=== PATIENT | female | born 1960 | race Caucasian/White ===

== ENCOUNTER → 2023-03-31 09:45 | Outpatient (REF) | payer BC, SELFPAY | LOC: RAD 09:45 | PROVIDERS: ATTENDING PHYSICIAN Family Medicine | DX: Z78.0 Asymptomatic menopausal state (principal); Z85.42 Personal history of malignant neoplasm of other parts of uterus | CPT/HCPCS: 77080 ==

== ENCOUNTER 2023-08-22 11:23 | Emergency (ER) | payer BC, SELFPAY ==
[2023-08-22 11:23] VITALS: BMI 32.9
[2023-08-22 11:25] VITALS: BP 202/126
[2023-08-22 11:51] LABS: % Basophils 0.2 % (0-2); % Eosinophils 2.4 % (0-6); % Immature Granulocytes 0.2 % (0-0.5); % Lymphocytes 31.1 % (20.5-51.1); % Monocytes 7.5 % (1.7-9.3); % Neutrophils 58.6 % (42.2-75.2); Absolute Eosinophils 0.2 10^3/uL (0-0.7); Absolute Lymphocytes 2.7 10^3/uL (1.2-3.4); Absolute Monocytes 0.7 10^3/uL (0.1-0.6); Absolute Neutrophils 5.1 10^3/uL (1.4-6.5); Hemoglobin 13.6 g/dL (12.0-16.0); Mean Corpuscular Hgb 30.8 pg (27.0-31.0); Mean Corpuscular Volume 90.5 fL (81.0-99.0); Mean Platelet Volume 9.8 fL (7.4-10.4); Nucleated Red Blood Cells % 0 %; Platelet Count 275 10^3/uL (130-400); Red Blood Cell Count 4.42 10^6/uL (4.20-5.40); Red Cell Dist. Width 12.8 % (11.5-14.5); White Blood Cell Count 8.7 10^3/uL (4.8-10.8)
[2023-08-22 12:09] LABS: ALT (SGPT) 21 U/L (0-35); AST (SGOT) 25 U/L (14-36); Albumin 4.6 g/dl (3.5-5.0); Alkaline Phosphatase 127 U/L (38-126); Blood Urea Nitrogen 22 mg/dl (7-17); Calcium 10.1 mg/dl (8.4-10.2); Carbon Dioxide 22 mmol/L (22-30); Chloride 104 mmol/L (98-107); Glucose 118 mg/dl (70-99); Potassium 3.9 mmol/L (3.5-5.1); Sodium 138 mmol/L (135-145); Total Bilirubin 0.5 mg/dl (0.2-1.3); eGFR > 60.00
[2023-08-22 13:48] VITALS: BP 164/91
[2023-08-22 14:00] VITALS: BP 178/91
[2023-08-22] MEDS: NSS 1000 IV (14:21)
[2023-08-22 15:00] VITALS: BP 148/69
[2023-08-22 16:00] VITALS: BP 143/72
--- NOTE | 2023-08-22 16:25 | ED.GENMED ---
History of Present Illness
General
Chief Complaint: Heart Rate Problem
Source: patient and spouse
Exam Limitations: none
Time Seen by Provider: 08/22/23 13:50
History of Present Illness
History of Present Illness:
63-year-old female presents with episodes of palpitations. The patient states that started on Tuesday when she was outside working. She states that she was out in the heat and noticed her heart rate was quite elevated. She states that she did
not have any skipped beats but she has had a fast heart rate. She came in after about an hour and settle down. She states she laid down on her left side. She states she wants her heart rate go back down slowly finally ending in the 80s. She
states that today she was in the house and also noted her heart rate to be elevated but she was not out in the heat. No chest pain or shortness of breath. No weakness. No fevers. No melena. No hematochezia. 5 years ago she did note to have
some similar symptoms and was going to have a monitor placed but her symptoms seem to have resolved. She states her heart rate is normally in the 80s or 70s. Her blood pressure is typically normal. No other new medication
Past History
Past History
ED Past Medical History: Other (Donated a kidney, endometrial cancer)
Phy Exam
Physical Exam
Physical Exam:
CONSTITUTIONAL Patient alert and oriented to person, place and time. Well-appearing. Vital signs reviewed.
HEAD atraumatic, normocephalic.
EYES eyelids normal to inspection, Pupils equally round and reactive to light, Extraocular muscles intact, Conjunctiva normal, Sclera normal.
NECK normal range of motion, Trachea midline, no jugular venous distention.
RESPIRATORY CHEST No respiratory distress noted, Chest expansion equal, Bilateral breath sounds clear.
CARDIOVASCULAR regular rate and rhythm, Heart sounds normal.
ABDOMEN abdomen nontender, Bowel sounds normal. No distention.
BACK normal inspection, no obvious deformities
UPPER EXTREMITY range of motion normal, Motor strength normal, no cyanosis, no edema.
LOWER EXTREMITY range of motion normal, Motor strength normal, no cyanosis, no edema.
NEURO Speech normal, No focal motor deficits, Andreas coma scale 15, Memory normal, Cranial Nerves intact to screening exam.
SKIN skin warm, dry, and normal in color.
PSYCHIATRIC patient oriented to person place and time, Normal affect.
Course
Orders/Labs/Results
Orders:
Orders
08/22/23 11:28
Electrocardiogram (*1) Urgent
Reason for Study: Palpitations
EKG- Treatment ONCE
08/22/23 11:38
Complete Blood Count/With Diff Urgent
Comprehensive Metabolic Panel Urgent
TSH Urgent
Comment: TSH ADDED ON BY FLOOR 1:50PM 08-22-23
08/22/23 13:51
Add On- LAB Urgent
Tests Added?: tsh
08/22/23 14:17
Vital Signs- Treatment ONCE
Frequency: Once
0.9% Sodium Chloride 1000 ml [Nss] 1,000 ml IV BOLUS
Abnormal Lab Results
08/22/23
11:38
Absolute Monos (auto) 0.7 H 10^3/uL
(0.1-0.6)
BUN 22 H mg/dl
(7-17)
Glucose 118 H mg/dl
(70-99)
Alkaline Phosphatase 127 H U/L
(38-126)
08/22/23 11:38
08/22/23 11:38
Vital Signs
Initial and Last Documented VS:
Initial Vital Signs
Temp Pulse Resp BP Pulse Ox
97.8 F 131 20 202/126 99
08/22/23 11:25 08/22/23 11:25 08/22/23 11:25 08/22/23 11:25 08/22/23 11:25
Last Documented Vital Signs
Temp Pulse Resp BP Pulse Ox
98.4 F 75 19 148/69 98
08/22/23 13:48 08/22/23 15:30 08/22/23 15:30 08/22/23 15:00 08/22/23 15:30
MDM/Problems Addressed
MDM/Problems Addressed:
Palpitations
*Pulse Oximetry
Patient hypoxic: no
*EKG
Interpreted by ED Provider?: Yes
Interpretation: abnormal
Rate: tachycardiac
Rhythm: sinus
[place]: normal axis
QRS Pattern: normal QRS
Ischemia: no ischemia
*Television Production Technician Interpretation
Rate: tachycardiac
Interpretation: abnormal
Rhythm: sinus
*Critical Care Note
Total Time (30-74mins, 75-104mins- exclusive of procedures): Not Applicable
Data Reviewed
Source: patient and spouse
Prescriptions/Medications Considered But Not Given:
Consider beta-mona but baseline heart rates okay. Question whether this is arrhythmia versus related to heat exposure and dehydration
Patient Management
Escalation/DeEscalation of care consider admission/obs:
Patient appears quite well. Remains in normal sinus rhythm. Labs grossly unremarkable. Okay for discharge outpatient follow-up PCP who will arrange for Holter monitor as it was discussed in the past. Also discussed possibility of an zaki for her
phone as she has an iPhone. Also recommended increase fluid intake and avoidance of heat exposure
ED Attending Note
-
Portions of this chart may have been created with voice recognition software.� Occasional wrong word or��sound alike� substitutions may have occurred due to the inherent limitations of voice recognition software.
Discharge Plan
Departure
Patient Disposition: Home (Routine Discharge)
Date of Disposition: 08/22/23
Time of Disposition: 16:25
Patient with high blood pressure during this ER visit?: Yes
Discharge Problem:
Palpitations
Instructions: Palpitations (DC), BLOOD PRESSURE
Referrals:
Seema Pepper DO [Family Provider] -
Brian Jones MD [Active] -
Activity Restrictions/Additional Instructions:
Please see your doctor in the next 2 days for follow-up and reevaluation to arrange a Holter monitor as discussed. Return immediately for worsening symptoms, shortness of breath, palpitations, chest pain, near passing out episodes, passing out
episodes or any other concerns. Please drink plenty of fluids and avoid excessive heat exposure.
Interventions
Interventions:
*Risk Screen - Suicide Last Done: 08/22/23 13:55
*General Assessment Last Done: 08/22/23 14:26
*Neglect/Abuse Screening Last Done: 08/22/23 13:55
*ED COVID-19 Vaccine History Last Done: 08/22/23 11:25
ED- Cardiac Assessment Last Done: 08/22/23 13:55
ED- Pulmonary Assessment Last Done: 08/22/23 13:55
Discharge Date and Time
Print Language: BENINESE
== END 2023-08-22 16:48 | disposition home or self-care (01) ==
LOC: EMR 11:23
PROVIDERS: Emergency Medicine; EMERGENCY PHYSICIAN Emergency Medicine; FAMILY PHYSICIAN Family Medicine
DX: R00.2 Palpitations (principal); Z85.42 Personal history of malignant neoplasm of other parts of uterus
CPT/HCPCS: 99283; 96360; 80053; 84443; 85025; 93005

== ENCOUNTER → 2023-08-26 09:36 | Outpatient (REF) | payer BC, SELFPAY | LOC: RCS 09:36 | PROVIDERS: ATTENDING PHYSICIAN Nurse Practitioner Family | DX: I10 Essential (primary) hypertension (principal); R00.2 Palpitations | CPT/HCPCS: 93225; 93226 ==

== ENCOUNTER → 2023-08-30 07:00 | Outpatient (REF) | payer BC, SELFPAY | LOC: HWRCS 07:00 | PROVIDERS: ATTENDING PHYSICIAN Nurse Practitioner Family | DX: I10 Essential (primary) hypertension (principal); R00.2 Palpitations | CPT/HCPCS: 93306 ==

== ENCOUNTER → 2023-12-19 09:53 | Outpatient (REF) | payer BC, SELFPAY | LOC: HWRAD 09:53 | PROVIDERS: ATTENDING PHYSICIAN Internal Medicine | DX: I10 Essential (primary) hypertension (principal) | CPT/HCPCS: 93975 ==

== ENCOUNTER → 2024-03-14 15:35 | Outpatient (REF) | payer BC, SELFPAY | LOC: WDC 15:35 | PROVIDERS: ATTENDING PHYSICIAN Obstetrics & Gynecology Gynecology; FAMILY PHYSICIAN Internal Medicine | DX: Z12.31 Encounter for screening mammogram for malignant neoplasm of breast (principal) | CPT/HCPCS: 77063; 77067 ==